=== PATIENT | male | born 1960 | race Caucasian/White ===

== ENCOUNTER → 2019-07-28 | Outpatient (CLI) | payer OTHER ==
--- NOTE | 2019-07-28 15:13 | CARDNUC ---
[place] [address] CARDIAC NUCLEAR IMAGING REPORT Name: SHERICE CANO JR Room: [facility]#: [id number] Admission: 07/28/19 Attend Phys: Nomi Lopez, Discharge: Date of : 58 Date of Service: 07/28/19 1513 Report #: [id number] THIS REPORT FOR: //name// APPROVED REPORT Imaging Protocol: Stress Tc-99m/Rest Tc-99m 1 day Study performed: 07/28/2019 08:30:00 Indication: Chest pain, Dyspnea Patient Location: Out-Patient Stress Tech: Bailey Caal Stress Nurse: Minerva Jones RN Ht: 6 ft 0 in Wt: 237 lbs BSA: 2.29 m2 BMI: 32.13 Medical History Medical History: HTN Medications: losartan, amlodipine Allergies: No known drug allergies Cardiac Risk Factors: Age, HTN, Tobacco History (Former), FHX of CAD Exercise History: Physically active Resting Data Rest SPECT myocardial perfusion imaging was performed in supine position 30 minutes following the intravenous injection of 11.9 mCi of Tc-99m Sestamibi. Time of rest injection: 09:00 The images were gated to evaluate regional wall motion and calculate left ventricular ejection fraction. Administration Route: IV Administration Site: Right AC Pharmacologic Stress Pharmacologic stress test was performed by injecting Regadenoson 0.4 mg IV push over 10-15 seconds immediately followed by the intravenous injection of 35.7 mCi of Tc-99m Sestamibi. Time of stress injection: 10:15 Administration Route: IV Administration Site: Right AC Heart Rate at time of stress injection: 117 bpm. Gated Stress SPECT was performed 45 minutes after stress injection. The images were gated to evaluate regional [place] [address] CARDIAC NUCLEAR IMAGING REPORT Name: SHERICE CANO JR Room: [facility]#: [id number] Admission: 07/28/19 Attend Phys: Nomi Lopez, Discharge: Date of : 58 Date of Service: 07/28/19 1513 Report #: [id number] left ventricular ejection fraction. Stress Test Details Stress Test: Pharmacologic stress was paired with low level exercise. Reason for pharmacologic stress test: arthritis. HR Max Heart Rate (APMHR): 161 bpm Resting HR: 68 bpm Target HR (85% APMHR): 136 bpm Max HR Achieved: 117 bpm % of APMHR: 72 Recovery HR: 90 bpm BP Resting BP: 142/79 mmHg Max BP: 192/42 mmHg Recovery BP: 154/74 mmHg ECG Resting ECG: Sinus Rhythm Stress ECG: Sinus Tachycardia ST Change: None Arrhythmia: None Recovery ECG: Sinus Rhythm Recovery ST Change: None Recovery Arrhythmia: None Clinical Reason for Termination: Completed protocol Exercise duration: 0 min sec Exercise capacity: 1 METs The patient tolerated Lexiscan infusion without significant cardiac symptoms. Stress ECG Conclusion The baseline 12-lead EKG shows sinus rhythm without significant ST segment abnormality. EKGs obtained during and post Lexiscan infusion show sinus rhythm and sinus tachycardia with no significant ST segment changes when compared to baseline. There were no stress-induced arrhythmias. Study Quality Study: Good Artifact: No artifact Study Data At rest, the left ventricular ejection fraction was 66%.. [place] [address] CARDIAC NUCLEAR IMAGING REPORT Name: SHERICE CANO JR Room: [facility]#: [id number] Admission: 07/28/19 Attend Phys: Nomi Lopez, Discharge: Date of : 58 Date of Service: 07/28/19 1513 Report #: [id number] Post stress, the left ventricular ejection was 64%.. TID = 0.96. Perfusion Perfusion images obtained at rest and post Lexiscan stress show uniform uptake of the radioisotope throughout the myocardium without defect. Wall Motion Normal left ventricular wall motion. Nuclear Conclusion ECG Findings: negative for ischemia Clinical Findings: negative for ischemia Nuclear Findings: negative for ischemia Exercise Capacity: not assessed Left Ventricular Function: normal Risk Study: low Myocardial perfusion images obtained at rest and post Lexiscan stress show uniform uptake of the radioisotope throughout the myocardium. There were no defects to suggest infarct or ischemia. Left ventricular systolic function is normal on gated studies. This is a low risk study. <Conclusion> The baseline 12-lead EKG shows sinus rhythm without significant ST segment abnormality. EKGs obtained during and post Lexiscan infusion show sinus rhythm and sinus tachycardia with no significant ST segment changes when compared to baseline. There were no stress-induced arrhythmias. <ELECTRONICALLY SIGNED> By: Nikko Cruz MD, FACC 07/28/19 1513 [id number] Nikko Cruz MD, FACC /INF
== END ==
LOC: M.NUC 07-14 13:51
DX: R07.9 Chest pain, unspecified (principal); R06.00 Dyspnea, unspecified; I10 Essential (primary) hypertension; Z79.899 Other long term (current) drug therapy; Z87.891 Personal history of nicotine dependence